=== PATIENT | female | born 1965 | race Caucasian/White ===

== ENCOUNTER → 2018-07-19 | Outpatient (CLI) | payer OTHER ==
[~2018-07-19] MED LIST: ALBIPROI; ALBU90OI6; CARI350 PO; CYCL10 PO; DIAZ10; FAMO40 PO; HYDACE10B; HYDACE10B PO; HYDACE5 PO; HYDACE5325 PO; IBUP800; NAPR500 PO; NITR100 PO; OXYACE5T PO; PHENA200 PO; PROM25 PO; Pepcid20 MG PO; SULTRIDS PO
== END | disposition home or self-care (01) ==
LOC: LAB SHORT 15:52 → LAB EV 15:52
DX: R59.0 Localized enlarged lymph nodes (principal)
CPT/HCPCS: 87070

== ENCOUNTER → 2019-08-20 | Outpatient (CLI) | payer OTHER ==
[2019-08-21 09:46] LABS: Candida species (DNA Probe) Negative (NEGATIVE); G. vaginalis (DNA Probe) Positive (NEGATIVE); T. vaginalis (DNA Probe) Negative (NEGATIVE)
[2019-08-24 14:07] LABS: HPV 16 Negative (Negative); HPV 18 Negative (Negative); HPV OTHER HR TYPES Negative (Negative)
== END | disposition home or self-care (01) ==
LOC: LAB SHORT 18:21 → LAB 18:21
PROVIDERS: Family Medicine
DX: Z01.419 Encounter for gynecological examination (general) (routine) without abnormal findings (principal)
CPT/HCPCS: 87480; 87510; 87624; 87660; G0123

== ENCOUNTER → 2021-07-30 | Outpatient (CLI) | payer OTHER ==
[2021-08-04 13:07] LABS: Stool Occult Bld Immuno 1 Negative (NEGATIVE)
== END | disposition home or self-care (01) ==
LOC: PLD 09:04 → LAB SHORT 09:04
PROVIDERS: Physician Assistant
DX: Z12.11 Encounter for screening for malignant neoplasm of colon (principal)
CPT/HCPCS: G0328

== ENCOUNTER 2021-11-08 09:03 | Day surgery (SDC) | payer OTHER | END 2021-11-08 23:45 | disposition home or self-care (01) | LOC: WOUND 09:03 | DX: T81.31XA Disruption of external operation (surgical) wound, not elsewhere classified, initial encounter (principal); S31.103A Unspecified open wound of abdominal wall, right lower quadrant without penetration into peritoneal cavity, initial encounter; X58.XXXA Exposure to other specified factors, initial encounter; Z88.5 Allergy status to narcotic agent; Z88.6 Allergy status to analgesic agent; Z87.891 Personal history of nicotine dependence | CPT/HCPCS: G0463 ==

== ENCOUNTER 2021-11-10 07:46 | Day surgery (SDC) | payer OTHER | END 2021-11-10 23:59 | disposition home or self-care (01) | LOC: WOUND 07:46 | DX: T81.31XA Disruption of external operation (surgical) wound, not elsewhere classified, initial encounter (principal); S31.103A Unspecified open wound of abdominal wall, right lower quadrant without penetration into peritoneal cavity, initial encounter; X58.XXXA Exposure to other specified factors, initial encounter ==

== ENCOUNTER 2021-11-15 01:47 | Day surgery (SDC) | payer OTHER | END 2021-11-15 22:40 | disposition home or self-care (01) | LOC: WOUND 01:47 | DX: T81.31XA Disruption of external operation (surgical) wound, not elsewhere classified, initial encounter (principal); S31.103A Unspecified open wound of abdominal wall, right lower quadrant without penetration into peritoneal cavity, initial encounter; X58.XXXA Exposure to other specified factors, initial encounter | CPT/HCPCS: A9270 ==

== ENCOUNTER 2021-11-17 06:03 | Day surgery (SDC) | payer OTHER | END 2021-11-17 23:45 | disposition home or self-care (01) | LOC: WOUND 06:03 | DX: T81.31XA Disruption of external operation (surgical) wound, not elsewhere classified, initial encounter (principal); S31.103A Unspecified open wound of abdominal wall, right lower quadrant without penetration into peritoneal cavity, initial encounter | CPT/HCPCS: G0463 ==

== ENCOUNTER 2021-11-20 16:40 | Day surgery (SDC) | payer OTHER | END 2021-11-20 22:46 | disposition home or self-care (01) | LOC: WOUND 16:40 | DX: T81.31XA Disruption of external operation (surgical) wound, not elsewhere classified, initial encounter (principal); Y83.8 Other surgical procedures as the cause of abnormal reaction of the patient, or of later complication, without mention of misadventure at the time of the procedure | CPT/HCPCS: G0463 ==

== ENCOUNTER 2021-11-22 00:35 | Day surgery (SDC) | payer OTHER | END 2021-11-22 23:08 | disposition home or self-care (01) | LOC: WOUND 00:35 | DX: T81.31XA Disruption of external operation (surgical) wound, not elsewhere classified, initial encounter (principal); Y83.8 Other surgical procedures as the cause of abnormal reaction of the patient, or of later complication, without mention of misadventure at the time of the procedure | CPT/HCPCS: A9270 ==

== ENCOUNTER 2021-11-29 01:17 | Day surgery (SDC) | payer OTHER | END 2021-11-29 23:10 | disposition home or self-care (01) | LOC: WOUND 01:17 | DX: T81.31XA Disruption of external operation (surgical) wound, not elsewhere classified, initial encounter (principal); Y83.8 Other surgical procedures as the cause of abnormal reaction of the patient, or of later complication, without mention of misadventure at the time of the procedure | CPT/HCPCS: A9270; G0463 ==

== ENCOUNTER 2021-12-06 03:06 | Day surgery (SDC) | payer OTHER | END 2021-12-07 03:00 | disposition home or self-care (01) | LOC: WOUND 03:06 | DX: T81.31XA Disruption of external operation (surgical) wound, not elsewhere classified, initial encounter (principal); I10 Essential (primary) hypertension; S31.103A Unspecified open wound of abdominal wall, right lower quadrant without penetration into peritoneal cavity, initial encounter; X58.XXXA Exposure to other specified factors, initial encounter; Y83.8 Other surgical procedures as the cause of abnormal reaction of the patient, or of later complication, without mention of misadventure at the time of the procedure | CPT/HCPCS: G0463 ==

== ENCOUNTER → 2022-09-20 | Outpatient (CLI) | payer OTHER ==
[2022-10-16 10:14] LABS: Stool Occult Bld Immuno 1 Negative (NEGATIVE)
== END | disposition home or self-care (01) ==
LOC: LAB SHORT 12:00 → LAB 12:00
PROVIDERS: Physician Assistant
DX: Z12.11 Encounter for screening for malignant neoplasm of colon (principal)
CPT/HCPCS: G0328

== ENCOUNTER → 2023-10-23 | Outpatient (CLI) | payer OTHER | LOC: LAB SHORT 16:18 → LAB 16:18 | DX: R35.0 Frequency of micturition (principal) | CPT/HCPCS: 87086 ==